=== PATIENT | male | born 1940 | race Caucasian/White ===

== ENCOUNTER → 2019-09-09 | Outpatient (REF) | payer OTHER | LOC: M LAB REF 13:44 | PROVIDERS: ATTEND Dermatology | DX: C44.222 Squamous cell carcinoma of skin of right ear and external auricular canal (principal) ==

== ENCOUNTER → 2019-10-12 | Outpatient (REF) | payer OTHER | LOC: M LAB REF 09:22 | PROVIDERS: ATTEND Dermatology | DX: C44.222 Squamous cell carcinoma of skin of right ear and external auricular canal (principal) ==

== ENCOUNTER → 2020-05-01 | Outpatient (CLI) | payer OTHER | LOC: M PAIN 12:25 | PROVIDERS: ATTEND Nurse Practitioner Family | DX: M96.1 Postlaminectomy syndrome, not elsewhere classified (principal); Z79.891 Long term (current) use of opiate analgesic ==

== ENCOUNTER → 2020-07-31 | Outpatient (CLI) | payer OTHER ==
--- NOTE | 2020-08-09 04:18 | ECWPNPC ---
PATIENT NAME: PEDRO LAROSE : 1940 GENDER: MALE VISIT DATE: 07/31/2020 DISCHARGE DATE: 07/31/20 1353 VISIT LOCKED DATE TIME: PHYSICIAN: FARHAN YO RESOURCE: FARHAN YO REASON FOR APPOINTMENT 1. MED MANAGEMENT / UTOX HISTORY OF PRESENT ILLNESS PAIN CENTER INTAKE QUESTIONS: DO YOU HAVE A HISTORY OF MRSA? :NO DO YOU TAKE A BLOOD THINNERS? :NO DO YOU HAVE ANY BLEEDING DISORDERS? :NO ANY NEW NUMBNESS OR WEAKNESS IN YOUR LEGS OR ARMS? :NO ANY PACEMAKER,DEFIBRILLATOR, OR DORSAL COLUMN STIMULATOR? :NO DO YOU HAVE ANY RASHES OR OPEN SORES? :NO ARE YOU ALLERGIC TO IV DYE? :NO ARE YOU DIABETIC? :NO ANY NEW PROBLEMS WITH YOUR MEDICATIONS? :NO HAVE YOU RECEIVED A VACCINE IN THE PAST 30 DAYS? :NO DO YOU PLAN TO RECEIVE A VACCINE IN THE NEXT 21 DAYS? :NO DO YOU NEED ANY PRESCRIPTION? :NO DO YOU TAKE ANY IMMUNOSUPPRESSIVE MEDICATIONS? :NO IS THERE A CHANCE YOU COULD BE ? :NO ARE YOU BREAST FEEDING? 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 THIS IS INITIAL FOLLOW-UP AFTER FIRST VISIT 3 MONTHS AGO. CONTINUES TO FIND HYDROCODONE 7.5/325 EVERY 6 HOURS NEEDED FOR PAIN HELPFUL AT REDUCING HIS PAIN WITHOUT SIDE EFFECTS. HE IS NOT INTERESTED IN INTERVENTIONAL THERAPIES. BRINGS IN HIS MEDICATION WHICH IS APPROPRIATE FOR WHAT WAS DISPENSED. -. FALL RISK SCREENING: SCREENING :NO FALLS REPORTED IN THE LAST YEAR PAIN SCREENING: PATIENT HAS A COMPLAINT OF ACUTE OR CHRONIC PAIN :YES LOCATION OF PAIN:RIGHT SHOULDER, LEFT SHOULDER, LOW BACK INTENSITY OF PAIN (SCALE OF 1 TO 10):6 WHAT DOES YOUR PAIN FEEL LIKE:CONTINOUS, TENDER, ACHING NURSING NOTE: -UPDATED NARCOTIC AGREEMENT. CURRENT MEDICATIONS TAKING FLOMAX 0.4 MG CAPSULE 1 CAPSULE 30 MINUTES AFTER THE SAME MEAL EACH DAY ORALLY ONCE A DAY TAKING HYDROCHLOROTHIAZIDE 25 MG TABLET 1 TABLET ORALLY ONCE A DAY TAKING PREVACID 15 MG CAPSULE DELAYED RELEASE 1 CAPSULE BEFORE A MEAL ORALLY BID TAKING FLUOXETINE HCL 20 MG CAPSULE 1 CAPSULE IN THE MORNING ORALLY ONCE A DAY TAKING LISINOPRIL 40 MG TABLET 1 TABLET ORALLY ONCE A DAY TAKING HYDROCODONE-ACETAMINOPHEN 7.5-325 MG TABLET 1 TABLET NEEDED ORALLY EVERY 6 HRS MDD4 NOT-TAKING HYDROCODONE-ACETAMINOPHEN 5-500 MG TABLET 2 TABLET NEEDED ORALLY EVERY 6 HRS NOT-TAKING METAXALONE 800 MG TABLET 1 TABLET ORALLY THREE TIMES A DAY PRN NOT-TAKING ETODOLAC 400 MG TABLET 1 TABLET ORALLY TWICE A DAY NOT-TAKING VASOTEC 10 MG TABLET 1 TABLET ORALLY TWICE A DAY NOT-TAKING SKELAXIN 800 MG TABLET 1 TABLET ORALLY THREE TIMES A DAY NOT-TAKING DOXYCYCLINE HYCLATE 100 MG CAPSULE 1 CAPSULE ORALLY TWICE A DAY NOT-TAKING VICODIN 5-500 MG TABLET 1 TABLET NEEDED ORALLY BID NOT-TAKING HYDROCODONE-ACETAMINOPHEN 10-325 MG TABLET 1 TABLET NEEDED ORALLY EVERY 6 HRS NOT-TAKING DOXYCYCLINE HYCLATE 100 MG CAPSULE 1 CAPSULE ORALLY BID MEDICATION LIST REVIEWED AND RECONCILED WITH THE PATIENT PAST MEDICAL HISTORY ABDOMINAL ANEURYSM CALCULUS OF KIDNEY DPERESSIVE DISORDER LUMBAGO REFLUX ESOPHAGITIS RENAL COLIC HTN ALLERGIES N.K.D.A. SURGICAL HISTORY APPENDECTOMY 1970 BACK 1983 THORAXIC 1987 RADIATION: SEED IMPLANTS CYSTOSCOPY 2019 FAMILY HISTORY FATHER: 45 YRS, CEREBRAL ANEURYSM MOTHER: 33 YRS, LUNG CANCER 3 SISTER(S) - HEALTHY. 2 SON(S) , 1 DAUGHTER(S) . 1 SISTER IS FROM CANCER. OLDEST SON HEALTH ISSUES. NO KNOWN FAMILY HISTORY OF UROLOGICAL DISEASES OR CANCERS.DENIES FAMILY HX OF MELANOMA AND PANCREATIC CANCER. SOCIAL HISTORY GENERAL: TOBACCO USE ARE YOU A:: FORMER SMOKER , HOW LONG HAS IT BEEN SINCE YOU LAST SMOKED?: 1-5 YEARS. LATEX QUESTIONNAIRE LATEX ALLERGY : HAVE YOU EVER DEVELOPED ANY TYPE OF REACTION AFTER HANDLING LATEX PRODUCTS SUCH RUBBER GLOVES, CONDOMS, DIAPHRAGMS, BALLOONS, SOCKS, OR UNDERWEAR?NO ALCOHOL SCREENING POINTS: 0, INTERPRETATION: NEGATIVE. RECREATIONAL DRUG USE DENIES. CAFFEINE 2-5/DAY. SEXUAL HX HAD SEX IN THE LAST 12 MONTHS (VAGINAL, ORAL, OR ANAL)?: NO, HAVE YOU EVER HAD AN STD?: YES, OTHER?: YES. LANGUAGE [place]. LEARNING BARRIERS / SPECIAL NEEDS VISION IMPAIRED?YES DIET: REGULAR. EXERCISE: NO REGULAR EXERCISE. MARITAL STATUS: . OTHERS AT HOME: SPOUSE, CHILD. HOSPITALIZATION/MAJOR DIAGNOSTIC PROCEDURE SURGICALLY RELATED REVIEW OF SYSTEMS CONSTITUTIONAL: ANY RECENT FEVER NO . CHILLS NO . WEIGHT CHANGE OF UNKNOWN REASONS NO . GASTROENTEROLOGY: NEW UNEXPLAINABLE CHANGES IN BOWEL CONTROL NO . CONSTIPATION NO . GENITOURINARY: ANY NEW CHANGE IN BLADDER CONTROL? NO . NEUROLOGY: NEW ONSET DIZZINESS OR NEUROLOGICAL CHANGES NOT MENTIONED NO . NEW NUMBNESS OR PAIN PATTERNS NOT MENTIONED AND PERTINENT TO TODAY'S VISIT NO . CARDIOLOGY: NEW CHEST PRESSURE NO . NEW CHEST PAIN NO . RESPIRATORY: UNEXPLAINABLE COUGH NO . NEW SHORTNESS OF BREATH NO . VITAL SIGNS WT 217.6 LBS, HT 70 IN, BMI 31.22 INDEX, BP 132/68 MM HG, HR 91 /MIN, RR 18 /MIN, TEMP 98.4 F, OXYGEN SAT % 92%, NA INITIALS SC13:09. EXAMINATION GENERAL EXAMINATION: GENERALAWAKE,ALERT ,PLEASANT . PSYCHAFFECT NORMAL . LUNGS:LUNG BECKETT ARE CLEAR TO AUSCULTATION BILATERALLY. GOOD MOVEMENT OF AIR . HEART:S1, S2 IN A REGULAR RATE AND RHYTHM. NO SIGNIFICANT MURMURS, RUBS OR GALLOPS NOTED . 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 BRINGS IN MEDICATIONS WHICH IS APPROPRIATE FOR WHAT WAS DISPENSED. , [facility] NARCOTIC AGREEMENT WAS REVIEWED AND SIGNED TODAY BY THE PATIENT. SEE ATTACHED DOCUMENT FOR FULL DETAILS; SPECIFIC ISSUES WERE REVIEWED: 1) KEEP PAIN MEDS IN THEIR ORIGINAL BOTTLES AND ANY WEEKLY PLANNERS ARE TO BE BROUGHT TO THE PAIN CENTER AT EVERY VISIT. 2) THE PATIENT IS NOT TO INCREASE DOSING OR TIMING OF THEIR PAIN MEDICATION WITHOUT SPECIFIC DIRECTION OF THEIR PAIN CENTERPROVIDER (NOT ER OR OTHER PROVIDERS). 3) ALL PAIN MEDS ARE TO BE KEPT SECURED, IN A LOCKED BOX. 4) NO PAIN MEDS ARE TO BE SHARED WITH ANY OTHER PERSON FOR ANY REASON. 5) NO PAIN MEDS MAY BE TAKEN FROM ANY FRIENDS OR RELATIVES FOR ANY REASON 6) NO MEDS OR SUBSTANCES WHICH ARE NOT LEGAL ARE TO BE USED- NO MARIJUANA, NO COCAINE, AMPHETAMINES, HEROIN, OR OTHERS ARE EVER TO BE USED. 7)URINE TESTING IS DONE TO ACCOUNT FOR MEDS AND SUBSTANCES BEING TAKEN AND WILL BE DONE RANDOMLY. URINE TOXICOLOGY TODAY. PROCEDURE CODES FA211 ESTABILISHED PATIENT [facility] CHARGE DISPOSITION & COMMUNICATION FOLLOW UP 3 MONTHS (REASON: MEDICATION MANAGEMENT/REVIEW TOXICOLOGY) ELECTRONICALLY SIGNED BY MASOOD STEVENSON ON 08/08/2020 AT 04:00 PM EST DISCLAIMER : THIS IS A VISIT SUMMARY EXTRACTED FROM THE [employer] CHART. IT IS NOT A COPY OF THE [employer] PROGRESS NOTE. YESENIA
== END ==
LOC: M PAIN 13:30
PROVIDERS: ATTEND Nurse Practitioner Family
DX: M47.816 Spondylosis without myelopathy or radiculopathy, lumbar region (principal); G89.29 Other chronic pain; K21.9 Gastro-esophageal reflux disease without esophagitis; Z86.59 Personal history of other mental and behavioral disorders; Z87.891 Personal history of nicotine dependence; Z79.899 Other long term (current) drug therapy

== ENCOUNTER → 2020-10-29 | Outpatient (CLI) | payer OTHER ==
--- NOTE | 2020-11-02 05:12 | ECWPNPC ---
PATIENT NAME: PEDRO LAROSE : 1940 GENDER: MALE VISIT DATE: 10/29/2020 DISCHARGE DATE: 10/29/20 1332 VISIT LOCKED DATE TIME: PHYSICIAN: FARHAN YO RESOURCE: FARHAN YO REASON FOR APPOINTMENT 1. 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 CONTINUES TO FIND HYDROCODONE 7.5/325 EVERY 6 HOURS NEEDED FOR PAIN HELPFUL AT REDUCING HIS PAIN WITHOUT SIDE EFFECTS. HE IS NOT INTERESTED IN INTERVENTIONAL THERAPIES. RECENT URINE TOXICOLOGY IS REVIEWED AND WITHIN NORMAL LIMITS. PATIENT DENIES SIDE EFFECTS WITH MEDICATIONS. REPORTING NORMAL BOWEL AND BLADDER FUNCTION. - -. FALL RISK SCREENING: SCREENING : NO FALLS REPORTED IN THE LAST YEAR. PAIN SCREENING: PATIENT HAS A COMPLAINT OF ACUTE OR CHRONIC PAIN :YES LOCATION OF PAIN:BOTH SHOULDERS, LOW BACK PAIN GOES DOWN BOTH LEG BUT MOSTLY THE LEFT INTENSITY OF PAIN (SCALE OF 1 TO 10):7 WHAT DOES YOUR PAIN FEEL LIKE:CONTINOUS DURATION:CONTINOUS, CONSTANT, ALL DAY PAIN IS INCREASED BY:ACTIVITIES, PROLONGED STANDING PAIN IS DECREASED BY:USE OF PAIN MEDICATIONS NURSING NOTE: -. PAIN CENTER INTAKE QUESTIONS: DO YOU HAVE A HISTORY OF MRSA? :NO DO YOU TAKE A BLOOD THINNERS? :NO DO YOU HAVE ANY BLEEDING DISORDERS? :NO ANY NEW NUMBNESS OR WEAKNESS IN YOUR LEGS OR ARMS? :NO ANY PACEMAKER,DEFIBRILLATOR, OR DORSAL COLUMN STIMULATOR? :NO DO YOU HAVE ANY RASHES OR OPEN SORES? :NO ARE YOU ALLERGIC TO IV DYE? :NO ARE YOU DIABETIC? :NO ANY NEW PROBLEMS WITH YOUR MEDICATIONS? :NO HAVE YOU RECEIVED A VACCINE IN THE PAST 30 DAYS? :YES 1ST COVID 10/13/2020 DO YOU PLAN TO RECEIVE A VACCINE IN THE NEXT 21 DAYS? :YES IF SO WHAT VACCINE AND WHEN? 2ND COVID 11/14/2020 DO YOU NEED ANY PRESCRIPTION? :NO DO YOU TAKE ANY IMMUNOSUPPRESSIVE MEDICATIONS? :NO IS THERE A CHANCE YOU COULD BE ? :NO ARE YOU BREAST FEEDING? :NO CURRENT MEDICATIONS TAKING VASOTEC 10 MG TABLET 1 TABLET ORALLY TWICE A DAY TAKING HYDROCODONE-ACETAMINOPHEN 7.5-325 MG TABLET 1 TABLET NEEDED ORALLY EVERY 6 HRS TAKING TIZANIDINE HCL 2 MG TABLET 1 TABLET NEEDED ORALLY THREE TIMES A DAY NOT-TAKING FLOMAX 0.4 MG CAPSULE 1 CAPSULE 30 MINUTES AFTER THE SAME MEAL EACH DAY ORALLY ONCE A DAY NOT-TAKING HYDROCHLOROTHIAZIDE 25 MG TABLET 1 TABLET ORALLY ONCE A DAY NOT-TAKING PREVACID 15 MG CAPSULE DELAYED RELEASE 1 CAPSULE BEFORE A MEAL ORALLY BID NOT-TAKING FLUOXETINE HCL 20 MG CAPSULE 1 CAPSULE IN THE MORNING ORALLY ONCE A DAY NOT-TAKING LISINOPRIL 40 MG TABLET 1 TABLET ORALLY ONCE A DAY DISCONTINUED HYDROCODONE-ACETAMINOPHEN 5-500 MG TABLET 2 TABLET NEEDED ORALLY EVERY 6 HRS DISCONTINUED METAXALONE 800 MG TABLET 1 TABLET ORALLY TWICE TIMES A DAY PRN DISCONTINUED ETODOLAC 400 MG TABLET 1 TABLET ORALLY TWICE A DAY DISCONTINUED SKELAXIN 800 MG TABLET 1 TABLET ORALLY THREE TIMES A DAY DISCONTINUED DOXYCYCLINE HYCLATE 100 MG CAPSULE 1 CAPSULE ORALLY TWICE A DAY DISCONTINUED VICODIN 5-500 MG TABLET 1 TABLET NEEDED ORALLY BID DISCONTINUED DOXYCYCLINE HYCLATE 100 MG CAPSULE 1 CAPSULE ORALLY BID DISCONTINUED HYDROCODONE-ACETAMINOPHEN 7.5-325 MG TABLET 1 TABLET NEEDED ORALLY EVERY 6 HRS MDD4 MEDICATION LIST REVIEWED AND RECONCILED WITH THE PATIENT PAST MEDICAL HISTORY ABDOMINAL ANEURYSM CALCULUS OF KIDNEY DPERESSIVE DISORDER LUMBAGO REFLUX ESOPHAGITIS RENAL COLIC HTN BACK PAIN ALLERGIES N.K.D.A. SOCIAL HISTORY GENERAL: TOBACCO USE ARE YOU A:FORMER SMOKER STOP 2008 LATEX QUESTIONNAIRE LATEX ALLERGY : HAVE YOU EVER DEVELOPED ANY TYPE OF REACTION AFTER HANDLING LATEX PRODUCTS SUCH RUBBER GLOVES, CONDOMS, DIAPHRAGMS, BALLOONS, SOCKS, OR UNDERWEAR?NO LATEX ALLERGY : HAVE YOU EVER DEVELOPED ANY TYPE OF REACTION DURING OR AFTER DENTAL APPOINTMENT, VAGINAL/RECTAL EXAMINATION, SURGICAL PROCEDURE, OR ANY OTHER EXPOSURE?NO LATEX RISK : HAVE YOU EVER HAD ANY DIFFICULTY BREATHING OR HIVES AFTER EATING OR HANDLING ANY FRUITS, OR VEGETABLES; SUCH KIWI, BANANAS, STONE FRUITS, OR CHESTNUTSNO LATEX RISK : DO YOU HAVE A PREVIOUS PERSONAL HISTORY OF MORE THAN NINE SURGERIES, SPINA BIFIDA, OR REPEATED CATHERIZATIONS? NO LATEX RISK : ARE YOU FREQUENTLY EXPOSED TO LATEX PRODUCTS IN YOUR OCCUPATION?NO DATE ASKED : 10/29/2020 ALCOHOL USE: NO. ALCOHOL SCREENING POINTS: 0, INTERPRETATION: NEGATIVE. RECREATIONAL DRUG USE DENIES. CAFFEINE 2-5/DAY. SEXUAL HX HAD SEX IN THE LAST 12 MONTHS (VAGINAL, ORAL, OR ANAL)?: NO, HAVE YOU EVER HAD AN STD?: YES, OTHER?: YES. LANGUAGE TAJIK. LEARNING BARRIERS / SPECIAL NEEDS VISION IMPAIRED?YES :CORRECTIVE LENSES READINESS TO LEARN?NO LEARNING PREFERENCES?NO EMOTIONAL BARRIERS?NO SPECIAL DEVICES?NO DIET: REGULAR. EXERCISE: NO REGULAR EXERCISE. MARITAL STATUS: . OTHERS AT HOME: SPOUSE, CHILD. REVIEW OF SYSTEMS CONSTITUTIONAL: ANY RECENT FEVER NO . CHILLS NO . WEIGHT CHANGE OF UNKNOWN REASONS NO . GASTROENTEROLOGY: NEW UNEXPLAINABLE CHANGES IN BOWEL CONTROL NO . CONSTIPATION NO . GENITOURINARY: ANY NEW CHANGE IN BLADDER CONTROL? NO . NEUROLOGY: NEW ONSET DIZZINESS OR NEUROLOGICAL CHANGES NOT MENTIONED NO . NEW NUMBNESS OR PAIN PATTERNS NOT MENTIONED AND PERTINENT TO TODAY'S VISIT NO . CARDIOLOGY: NEW CHEST PRESSURE NO . PATIENT DENIES NO . RESPIRATORY: UNEXPLAINABLE COUGH NO . NEW SHORTNESS OF BREATH NO . VITAL SIGNS WT 220 LBS, HT 70 IN, BMI 31.56 INDEX, BP 125/75 MM HG, HR 86 /MIN, RR 18 /MIN, TEMP 97.2 F, OXYGEN SAT % 93%, SAFE IN ENV? (Y/N) YEST.CHILO CUELLAR. EXAMINATION GENERAL EXAMINATION: GENERALAWAKE,ALERT ,PLEASANT . PSYCHAFFECT NORMAL . LUNGS:LUNG BECKETT ARE CLEAR TO AUSCULTATION BILATERALLY. GOOD MOVEMENT OF AIR . HEART:S1, S2 IN A REGULAR RATE AND RHYTHM. NO SIGNIFICANT MURMURS, RUBS OR GALLOPS NOTED . 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 RECENT URINE TOXICOLOGY REVIEWED. NO UNAUTHORIZED MEDICATIONS. NO ILLICIT SUBSTANCES AND PRESCRIBED MEDICATIONS WERE PRESENT. BRING MEDICATION TO NEXT APPOINTMENT , RISKS OF NARCOTIC/OPIOD MEDICATIONS INCLUDES BUT IS NOT LIMITED TO RISK OF DEPENDANCE/DEVELOPMENT OF ADDICTION, MOOD DISTURBANCE AND DEPRESSION, OSTEOPOROSIS, HORMONAL AND LABIDAL CHANGES, RESPIRATORY DEPRESSION AND . PATIENT IS ADVISED NOT TO DRIVE OR DRINK ALCOHOL WHILE ON THESE MEDICATIONS. PROCEDURE CODES FA211 ESTABILISHED PATIENT [facility] CHARGE DISPOSITION & COMMUNICATION FOLLOW UP 3 MONTHS (REASON: MED MGMNT-UTOX) ELECTRONICALLY SIGNED BY MASOOD STEVENSON ON 11/01/2020 AT 09:41 AM EDT DISCLAIMER : THIS IS A VISIT SUMMARY EXTRACTED FROM THE [employer] CHART. IT IS NOT A COPY OF THE [employer] PROGRESS NOTE. YESENIA
== END ==
LOC: M PAIN 13:30
PROVIDERS: ATTEND Nurse Practitioner Family
DX: M47.816 Spondylosis without myelopathy or radiculopathy, lumbar region (principal); F32.9 Major depressive disorder, single episode, unspecified; K21.00 Gastro-esophageal reflux disease with esophagitis, without bleeding; I10 Essential (primary) hypertension; Z87.891 Personal history of nicotine dependence; Z79.891 Long term (current) use of opiate analgesic; Z79.899 Other long term (current) drug therapy

== ENCOUNTER → 2021-01-02 | Outpatient (REF) | payer OTHER ==
[~2021-01-02] MED LIST: ALBU8.5H; ALEN70TA82; CIPR500T39; FINA5TAB2; FLUO20CA22; HYDR-3716; LISI20TA35; LOVA40TA; MELO7.5T35; METF-838; OXYB5TAB10; PANT40TA29; ROPI0.2534; SPIR12.9; TAMS1CAP17; TIZA1TAB12
[2021-01-02 13:37] LABS: APPEARANCE, URINE CLEAR (CLEAR); BACTERIA, URINE AUTO 1+ (NEGATIVE); BILIRUBIN, URINE AUTO NEGATIVE (NEGATIVE); BLOOD, URINE BLOOD NEGATIVE (NEGATIVE); COLOR, URINE YELLOW (YELLOW); GLUCOSE, URINE (UA) AUTO NEGATIVE (NEGATIVE); KETONE, URINE AUTO NEGATIVE (NEGATIVE); LEUKOCYTE ESTERASE, URINE AUTO TRACE (NEGATIVE); MUCUS, URINE SMALL (NEGATIVE); NITRITE, URINE AUTO NEGATIVE (NEGATIVE); PROTEIN, URINE AUTO NEGATIVE (NEGATIVE); RBC, URINE AUTO 1 /HPF (0-3); SPECIFIC GRAVITY URINE AUTO 1.014 (1.002-1.035); SQUAMOUS EPITHELIAL CELL UR AU 0 /HPF (0-6); UROBILINOGEN, URINE AUTO 0.2 mg/dL (0.0-2.0); WBC, URINE AUTO 12 /HPF (0-3)
== END ==
LOC: M SMT 12:50
PROVIDERS: ATTEND Nurse Practitioner Women's Health
DX: N40.0 Benign prostatic hyperplasia without lower urinary tract symptoms (principal)
CPT/HCPCS: 81001; 87088; 87186; G0463

== ENCOUNTER 2021-01-10 09:56 | Emergency (ER) | payer OTHER ==
[~2021-01-10] VITALS: Ht 177.8 cm; Wt 93.2 kg
[2021-01-10] MEDS ORDERED: SPIR12.9 (11:57)
[2021-01-10] MEDS ORDERED: MELO7.5T35 (11:57)
[2021-01-10] MEDS ORDERED: OXYB5TAB10 (11:57)
[2021-01-10] MEDS ORDERED: TIZA1TAB12 (11:57)
[2021-01-10] MEDS ORDERED: PANT40TA29 (11:57)
[2021-01-10] MEDS ORDERED: ALBU8.5H (11:57)
[2021-01-10] MEDS ORDERED: TAMS1CAP17 (11:57)
[2021-01-10] MEDS ORDERED: ALEN70TA82 (11:57)
[2021-01-10] MEDS ORDERED: METF-838 (11:57)
[2021-01-10] MEDS ORDERED: FINA5TAB2 (11:57)
[2021-01-10] MEDS ORDERED: ROPI0.2534 (11:57)
[2021-01-10] MEDS ORDERED: LOVA40TA (11:57)
[2021-01-10] MEDS ORDERED: HYDR-3716 (11:57)
[2021-01-10] MEDS ORDERED: CIPR500T39 (11:57)
[2021-01-10] MEDS ORDERED: FLUO20CA22 (11:57)
[2021-01-10] MEDS ORDERED: LISI20TA35 (11:57)
[2021-01-10 13:56] VITALS: BP 118/70
== END 2021-01-10 14:01 | disposition home or self-care (01) ==
LOC: M ED 09:56
DX: N39.0 Urinary tract infection, site not specified (principal); R39.12 Poor urinary stream; T44.3X5A Adverse effect of other parasympatholytics [anticholinergics and antimuscarinics] and spasmolytics, initial encounter; Z79.2 Long term (current) use of antibiotics; J44.9 Chronic obstructive pulmonary disease, unspecified; I10 Essential (primary) hypertension; E11.9 Type 2 diabetes mellitus without complications; K21.9 Gastro-esophageal reflux disease without esophagitis; M54.9 Dorsalgia, unspecified; G89.29 Other chronic pain; Z79.899 Other long term (current) drug therapy; Z85.46 Personal history of malignant neoplasm of prostate; Z87.440 Personal history of urinary (tract) infections; Z87.442 Personal history of urinary calculi; Z92.3 Personal history of irradiation; Z86.79 Personal history of other diseases of the circulatory system; Z90.89 Acquired absence of other organs; Z98.890 Other specified postprocedural states; Z87.891 Personal history of nicotine dependence; Z82.49 Family history of ischemic heart disease and other diseases of the circulatory system; Z80.1 Family history of malignant neoplasm of trachea, bronchus and lung

== ENCOUNTER → 2021-02-01 | Outpatient (CLI) | payer OTHER ==
--- NOTE | 2021-02-05 04:56 | ECWPNPC ---
PATIENT NAME: PEDRO LAROSE : 1940 GENDER: MALE VISIT DATE: 02/01/2021 DISCHARGE DATE: 02/01/21 1327 VISIT LOCKED DATE TIME: PHYSICIAN: FARHAN YO RESOURCE: FARHAN YO REASON FOR APPOINTMENT 1. LOW BACK/MED MGMNT/UTOX HISTORY OF PRESENT ILLNESS GENERAL: HERE FOR FOLLOW-UP AND MEDICATION MANAGEMENT FOR CHRONIC LOW BACK PAIN. FINDS CURRENT CHRONIC PAIN MEDICATION HELPFUL AT REDUCING PAIN AND KEEPING HIM FUNCTIONAL. DENIES ADVERSE SIDE EFFECTS WITH MEDICATION. BRINGS IN HIS MEDICINE WHICH IS APPROPRIATE FOR WHAT WAS DISPENSED. -. FALL RISK SCREENING: SCREENING ONE FALL THIS YEAR NO MAJOR INJURIES BUT DID GO TO THE ER. PAIN SCREENING: PATIENT HAS A COMPLAINT OF ACUTE OR CHRONIC PAIN :YES LOCATION OF PAIN:LOW BACK INTENSITY OF PAIN (SCALE OF 1 TO 10):6 WHAT DOES YOUR PAIN FEEL LIKE:ACHING, CONTINOUS DURATION:CONTINOUS, CONSTANT, ONLY WITH SPECIFIC ACTIVITIES PAIN IS INCREASED BY:ACTIVITIES PAIN IS DECREASED BY:USE OF PAIN MEDICATIONS NURSING NOTE: -. PAIN CENTER INTAKE QUESTIONS: DO YOU HAVE A HISTORY OF MRSA? :NO DO YOU TAKE A BLOOD THINNERS? :NO ASPIR-LOW 81 MG DO YOU HAVE ANY BLEEDING DISORDERS? :NO ANY NEW NUMBNESS OR WEAKNESS IN YOUR LEGS OR ARMS? :NO ANY PACEMAKER,DEFIBRILLATOR, OR DORSAL COLUMN STIMULATOR? :NO DO YOU HAVE ANY RASHES OR OPEN SORES? :NO ARE YOU ALLERGIC TO IV DYE? :NO ARE YOU DIABETIC? :NO BORDER LINE ANY NEW PROBLEMS WITH YOUR MEDICATIONS? :NO HAVE YOU RECEIVED A VACCINE IN THE PAST 30 DAYS? :YES 1ST COVID 10/13/2020 DO YOU PLAN TO RECEIVE A VACCINE IN THE NEXT 21 DAYS? :YES IF SO WHAT VACCINE AND WHEN? 2ND COVID 11/14/2020 DO YOU NEED ANY PRESCRIPTION? :NO DO YOU TAKE ANY IMMUNOSUPPRESSIVE MEDICATIONS? :NO IS THERE A CHANCE YOU COULD BE ? :NO ARE YOU BREAST FEEDING? :NO CURRENT MEDICATIONS TAKING VASOTEC 10 MG TABLET 1 TABLET ORALLY TWICE A DAY TAKING TIZANIDINE HCL 2 MG TABLET 1 TABLET NEEDED ORALLY THREE TIMES A DAY TAKING LOVASTATIN 40 MG TABLET 1 TABLET WITH THE EVENING MEAL ORALLY ONCE A DAY TAKING FISH OIL 1000 MG CAPSULE 1 CAPSULE ORALLY ONCE A DAY TAKING ASPIR-LOW 81 MG TABLET DELAYED RELEASE 1 TABLET ORALLY ONCE A DAY TAKING METFORMIN HCL ER 500 MG TABLET EXTENDED RELEASE 24 HOUR 1 TABLET WITH EVENING MEAL ORALLY ONCE A DAY TAKING PANTOPRAZOLE SODIUM 40 MG TABLET DELAYED RELEASE 1 TABLET ORALLY ONCE A DAY TAKING ALENDRONATE SODIUM 70 MG TABLET 1 TABLET 30 MINUTES BEFORE THE FIRST FOOD, BEVERAGE OR MEDICINE OF THE DAY WITH PLAIN WATER ORALLY TAKING TAMSULOSIN HCL 0.4 MG CAPSULE 1 CAPSULE ORALLY ONCE A DAY TAKING FINASTERIDE 5 MG TABLET 1 TABLET ORALLY ONCE A DAY TAKING ROPINIROLE HCL 0.25 MG TABLET 1 TABLET 1 TO 3 HOURS BEFORE BEDTIME ORALLY ONCE A DAY TAKING MELOXICAM 7.5 MG TABLET 1 TABLET ORALLY ONCE A DAY TAKING FLUOXETINE HCL 20 MG CAPSULE 1 CAPSULE ORALLY ONCE A DAY TAKING TIZANIDINE HCL 2 MG TABLET 1 TABLET NEEDED ORALLY THREE TIMES A DAY TAKING VITAMIN B12 100 MCG TABLET DIRECTED ORALLY TAKING CLOTRIMAZOLE 1 % CREAM 1 APPLICATION EXTERNALLY TWICE A DAY TAKING LISINOPRIL 20 MG TABLET 1 TABLET ORALLY 12.5MG ONCE A DAY TAKING OXYBUTYNIN CHLORIDE 5 MG TABLET 1 TABLET ORALLY TWICE A DAY TAKING BACTRIM DS 800-160 MG TABLET 1 TABLET ORALLY DIRECTED-1 HOUR PRIOR TO CYSTOSCOPY TAKING CIPRO 500 MG TABLET 1 TABLET ORALLY EVERY 12 HRS TAKING HYDROCODONE-ACETAMINOPHEN 7.5-325 MG TABLET 1 TABLET NEEDED ORALLY EVERY 6 HRS MDD4 NOT-TAKING HYDROCODONE-ACETAMINOPHEN 7.5-325 MG TABLET 1 TABLET NEEDED ORALLY EVERY 6 HRS NOT-TAKING FLOMAX 0.4 MG CAPSULE 1 CAPSULE 30 MINUTES AFTER THE SAME MEAL EACH DAY ORALLY ONCE A DAY NOT-TAKING HYDROCHLOROTHIAZIDE 25 MG TABLET 1 TABLET ORALLY ONCE A DAY NOT-TAKING PREVACID 15 MG CAPSULE DELAYED RELEASE 1 CAPSULE BEFORE A MEAL ORALLY BID NOT-TAKING FLUOXETINE HCL 20 MG CAPSULE 1 CAPSULE IN THE MORNING ORALLY ONCE A DAY MEDICATION LIST REVIEWED AND RECONCILED WITH THE PATIENT PAST MEDICAL HISTORY ABDOMINAL ANEURYSM CALCULUS OF KIDNEY DPERESSIVE DISORDER LUMBAGO REFLUX ESOPHAGITIS RENAL COLIC HTN BACK PAIN ALLERGIES N.K.D.A. SURGICAL HISTORY APPENDECTOMY 1971 BACK 1984 THORAXIC 1987 RADIATION: SEED IMPLANTS CYSTOSCOPY 2019 SCAR TISSUE REMOVAL ON URETHRA 03/2020 FAMILY HISTORY FATHER: 45 YRS, CEREBRAL ANEURYSM MOTHER: 33 YRS, LUNG CANCER, COPD 3 SISTER(S) - HEALTHY. 2 SON(S) , 1 DAUGHTER(S) . 1 SISTER IS FROM CANCER. OLDEST SON HEALTH ISSUES. NO KNOWN FAMILY HISTORY OF UROLOGICAL DISEASES OR CANCERS.DENIES FAMILY HX OF MELANOMA AND PANCREATIC CANCER. SOCIAL HISTORY GENERAL: TOBACCO USE ARE YOU A:FORMER SMOKER STOP 2008 LATEX QUESTIONNAIRE LATEX ALLERGY : HAVE YOU EVER DEVELOPED ANY TYPE OF REACTION AFTER HANDLING LATEX PRODUCTS SUCH RUBBER GLOVES, CONDOMS, DIAPHRAGMS, BALLOONS, SOCKS, OR UNDERWEAR?NO LATEX ALLERGY : HAVE YOU EVER DEVELOPED ANY TYPE OF REACTION DURING OR AFTER DENTAL APPOINTMENT, VAGINAL/RECTAL EXAMINATION, SURGICAL PROCEDURE, OR ANY OTHER EXPOSURE?NO LATEX RISK : HAVE YOU EVER HAD ANY DIFFICULTY BREATHING OR HIVES AFTER EATING OR HANDLING ANY FRUITS, OR VEGETABLES; SUCH KIWI, BANANAS, STONE FRUITS, OR CHESTNUTSNO LATEX RISK : DO YOU HAVE A PREVIOUS PERSONAL HISTORY OF MORE THAN NINE SURGERIES, SPINA BIFIDA, OR REPEATED CATHERIZATIONS? NO LATEX RISK : ARE YOU FREQUENTLY EXPOSED TO LATEX PRODUCTS IN YOUR OCCUPATION?NO DATE ASKED : 02/01/2021 ALCOHOL USE: NO. ALCOHOL SCREENING POINTS: 0, INTERPRETATION: NEGATIVE. RECREATIONAL DRUG USE DENIES. CAFFEINE 2-5/DAY. SEXUAL HX HAD SEX IN THE LAST 12 MONTHS (VAGINAL, ORAL, OR ANAL)?: NO, HAVE YOU EVER HAD AN STD?: YES, OTHER?: YES. LANGUAGE SAO [place]. LEARNING BARRIERS / SPECIAL NEEDS CHANGE FROM LAST VISIT?NO BARRIERS TO LEARNING?NO HEARING IMPAIRED?NO NOT REALLY VISION IMPAIRED?YES :CORRECTIVE LENSES COGNITIVELY IMPAIRED?NO READINESS TO LEARN?NO LEARNING PREFERENCES?NO LEARNING CAPABILITIES PRESENT?YES EMOTIONAL BARRIERS?NO SPECIAL DEVICES?NO FREELANCE TRANSLATOR NEEDED?NO DIET: REGULAR. EXERCISE: NO REGULAR EXERCISE. MARITAL STATUS: . OTHERS AT HOME: SPOUSE, CHILD. HOSPITALIZATION/MAJOR DIAGNOSTIC PROCEDURE SURGICALLY RELATED ONE FALL NO MAJOR INJURES DID STAY OVER NIGHT REVIEW OF SYSTEMS CONSTITUTIONAL: ANY RECENT FEVER NO . CHILLS NO . WEIGHT CHANGE OF UNKNOWN REASONS NO . GASTROENTEROLOGY: NEW UNEXPLAINABLE CHANGES IN BOWEL CONTROL NO . CONSTIPATION NO . GENITOURINARY: ANY NEW CHANGE IN BLADDER CONTROL? NO . NEUROLOGY: NEW ONSET DIZZINESS OR NEUROLOGICAL CHANGES NOT MENTIONED NO . NEW NUMBNESS OR PAIN PATTERNS NOT MENTIONED AND PERTINENT TO TODAY'S VISIT NO . CARDIOLOGY: NEW CHEST PRESSURE NO . PATIENT DENIES NO . RESPIRATORY: UNEXPLAINABLE COUGH NO . NEW SHORTNESS OF BREATH NO . VITAL SIGNS WT 212 LBS, HT 70 IN, BMI 30.42 INDEX, BP 122/82 MM HG, HR 75 /MIN, RR 18 /MIN, TEMP 97.6 F, OXYGEN SAT % 94%, NA INITIALS SC 13:08. EXAMINATION GENERAL EXAMINATION: GENERALAWAKE,ALERT ,PLEASANT . PSYCHAFFECT NORMAL . LUNGS:LUNG BECKETT ARE CLEAR TO AUSCULTATION BILATERALLY. GOOD MOVEMENT OF AIR . HEART:S1, S2 IN A REGULAR RATE AND RHYTHM. NO SIGNIFICANT MURMURS, RUBS OR GALLOPS NOTED . 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 BRINGS IN MEDICATIONS WHICH IS APPROPRIATE FOR WHAT WAS DISPENSED. RECENT URINE TOXICOLOGY REVIEWED. NO UNAUTHORIZED MEDICATIONS. NO ILLICIT SUBSTANCES AND PRESCRIBED MEDICATIONS WERE PRESENT. , RISKS OF NARCOTIC/OPIOD MEDICATIONS INCLUDES BUT IS NOT LIMITED TO RISK OF DEPENDANCE/DEVELOPMENT OF ADDICTION, MOOD DISTURBANCE AND DEPRESSION, OSTEOPOROSIS, HORMONAL AND LABIDAL CHANGES, RESPIRATORY DEPRESSION AND . PATIENT IS ADVISED NOT TO DRIVE OR DRINK ALCOHOL WHILE ON THESE MEDICATIONS. PROCEDURE CODES FA211 ESTABILISHED PATIENT [facility] CHARGE DISPOSITION & COMMUNICATION FOLLOW UP 3 MONTHS (REASON: MED MGMNT/REVIEW UTOX) ELECTRONICALLY SIGNED BY MASOOD STEVENSON ON 02/04/2021 AT 12:52 PM EDT DISCLAIMER : THIS IS A VISIT SUMMARY EXTRACTED FROM THE [employer] CHART. IT IS NOT A COPY OF THE [employer] PROGRESS NOTE. MTDD
== END ==
LOC: M PAIN 13:30
PROVIDERS: ATTEND Nurse Practitioner Family
DX: M47.816 Spondylosis without myelopathy or radiculopathy, lumbar region (principal); F32.9 Major depressive disorder, single episode, unspecified; M54.5 Low back pain; K21.00 Gastro-esophageal reflux disease with esophagitis, without bleeding; I10 Essential (primary) hypertension; Z87.442 Personal history of urinary calculi; Z87.891 Personal history of nicotine dependence; Z79.891 Long term (current) use of opiate analgesic; Z79.82 Long term (current) use of aspirin; Z79.84 Long term (current) use of oral hypoglycemic drugs; Z79.899 Other long term (current) drug therapy; Z79.1 Long term (current) use of non-steroidal anti-inflammatories (NSAID)

== ENCOUNTER 2021-03-14 06:53 | Day surgery (SDC) | payer OTHER ==
[~2021-03-14] VITALS: Ht 177.8 cm; Wt 93.3 kg
[~2021-03-14 06:53] MED LIST changes: +CIPROFLOXACIN 400 MG in IV 1 EA IV ONE; +D31000TA2 PO; +ECOT81TA5 PO; -FINA5TAB2; +FINA5TAB2 PO; -FLUO20CA22; +FLUO20CA22 PO; +FOSA70TA PO; -HYDR-3716; +HYDR-3716 PO; +INCR1INH INH; +LIDOCAINE 1% MDV 20ML VIAL SQ PRN; +LISI20TA33 PO; -LOVA40TA; +LOVA40TA PO; +LR 1,000 ML IV ONE; -MELO7.5T35; +MELO7.5T35 PO; -METF-838; +METF-838 PO; -PANT40TA29; +PANT40TA29 PO; -ROPI0.2534; +ROPI0.2534 PO; -TAMS1CAP17; +TAMS1CAP17 PO
[2021-03-14] MEDS ORDERED: MIDAZOLAM INJ 2MG/2ML VIAL (J2250 PER 1MG) As Ordered ONE (08:00)
[2021-03-14] MEDS ORDERED: propofoL 200 MG/20 ML VIAL As Ordered ONE (08:00)
[2021-03-14] MEDS ORDERED: ONDANSETRON 4MG/2ML VIAL As Ordered ONE (08:00)
[2021-03-14] MEDS ORDERED: dexameTHASONE 4 MG/ML 1ML VIAL (J1100 PER 1MG) As Ordered ONE (08:00)
[2021-03-14] MEDS ORDERED: LIDOCAINE 2% 100MG/5ML SDV (FOR ANES.) As Ordered ONE (08:00)
[2021-03-14] MEDS ORDERED: fentaNYL 100 MCG/2 ML INJECTION (J3010) As Ordered ONE (08:00)
[2021-03-14] MEDS ORDERED: KETOROLAC 60MG 2ML VIAL As Ordered ONE (08:00)
--- NOTE | 2021-03-14 08:40 | ROOPDOC ---
[facility] Report Of Operation Report of Operation DATE OF PROCEDURE: 03/14/21 PREPROCEDURE DIAGNOSES: [urethral stricture]. POSTPROCEDURE DIAGNOSES: [same]. PROCEDURE PERFORMED: [dviu with complex catheter placement]. SURGEON: [Brigitte Gonzalez], AIR BRAKE TESTER: [none], MD ANESTHESIA: [general lma]. ESTIMATED BLOOD LOSS: Approximately [1] mL. COMPLICATIONS: [none]. REMARKS: [80yo wm. Urethral stricture at level of prostatic urethra. S/p seeds and radiation in past for prostate cancer. Incontinence. Surgery arranged to open urethra. No guarantees given. Informed consent obtained. Risks discussed including infection, pain, bleeding, scarring, worsening of incontinence, retention, need for more surgery, injury to gu tract, recurrence of stricture and others.]. FINDINGS: [bindu indistinct prostate] SPECIMENS REMOVED: [urine cx] PROCEDURE NOTE: . DESCRIPTION OF PROCEDURE: [Met with pt in preop area and again discussed surgery. Informed consent obtained. Risks discussed including worsening of incontinence and others. Pt brought to OR room. Surgery done under iv Cipro. General lma anesthesia secured. Time out performed. Dorsal litho position. Well padded. Prep'd and draped in sterile fashion. Urethrotome sheath advanced into urethra with its obturator. Urethrotome then assembled. Prostatic urethra with much scarring. Tissue pale. True lumen at 12 o'clock. Wire advanced into bladder. Stricture cut at 12 o'clock. Also cut at 3 and 9. Couldn't pass scope initially but after cutting, no problem. Bladder inspected. No stone or tumor or acute cystitis. Urine collected for cx. Once satisfied with opening stricture, 20fr native placed over wire. Cut until bleeding noted. Bladder irrigated at end. Bleeding not as issue. Pt left room in satisfactory condition. Home with Bactrim, Pyridium and oxybutynin.]. ANAT GONZALEZ MD Mar 14, 2021 08:40
[2021-03-14] MEDS ORDERED: OXYB5TAB10 PO (08:44)
[2021-03-14] MEDS ORDERED: BACTDSTA PO (08:44)
[2021-03-14] MEDS ORDERED: PYRI1TAB5 PO (08:44)
[2021-03-14] MEDS ORDERED: ePHEDrine SULFATE 25 MG/5 ML(5MG/ML) SYRINGE As Ordered ONE (08:51)
[2021-03-14] MEDS ORDERED: oxyCODONE 5MG TAB PO PRN (09:25)
[2021-03-14] MEDS ORDERED: fentaNYL 100 MCG/2 ML INJECTION (J3010) IV PRN (09:25)
[2021-03-14] MEDS ORDERED: LR 1,000 ML IV SCH ×2 (09:25→09:35)
[2021-03-14] MEDS ORDERED: MEPERIDINE INJ 25 MG/ML VIAL (J2175) IV PRN (09:25)
[2021-03-14] MEDS ORDERED: ONDANSETRON 4MG/2ML VIAL IV PRN (09:25)
[2021-03-14 10:35] VITALS: BP 134/78
== END 2021-03-14 10:50 | disposition home or self-care (01) ==
LOC: M SDC 06:53
PROVIDERS: ATTEND Urology
DX: N35.911 Unspecified urethral stricture, male, meatal (principal); R32 Unspecified urinary incontinence; R35.0 Frequency of micturition; J44.9 Chronic obstructive pulmonary disease, unspecified; E11.9 Type 2 diabetes mellitus without complications; K21.9 Gastro-esophageal reflux disease without esophagitis; I10 Essential (primary) hypertension; M19.90 Unspecified osteoarthritis, unspecified site; G89.4 Chronic pain syndrome; F32.9 Major depressive disorder, single episode, unspecified; I71.2 Thoracic aortic aneurysm, without rupture; Z79.899 Other long term (current) drug therapy; Z79.82 Long term (current) use of aspirin; Z79.84 Long term (current) use of oral hypoglycemic drugs
CPT/HCPCS: 52276; 87088; C1769; J0744; J1100; J1885; J2405; J3010

== ENCOUNTER → 2021-07-25 | Outpatient (CLI) | payer OTHER ==
[~2021-07-25] MED LIST changes: +BACTDSTA PO; -CIPROFLOXACIN 400 MG in IV 1 EA IV ONE; -LIDOCAINE 1% MDV 20ML VIAL SQ PRN; -LR 1,000 ML IV ONE; +OXYB5TAB10 PO; +PYRI1TAB5 PO
== END ==
LOC: M PAIN 13:45
PROVIDERS: ATTEND Anesthesiology
DX: M54.50 Low back pain, unspecified (principal); F32.A Depression, unspecified; K21.00 Gastro-esophageal reflux disease with esophagitis, without bleeding; I10 Essential (primary) hypertension; Z85.46 Personal history of malignant neoplasm of prostate; Z87.442 Personal history of urinary calculi; Z79.891 Long term (current) use of opiate analgesic; Z87.891 Personal history of nicotine dependence; Z79.82 Long term (current) use of aspirin; Z79.84 Long term (current) use of oral hypoglycemic drugs; Z79.1 Long term (current) use of non-steroidal anti-inflammatories (NSAID); Z79.899 Other long term (current) drug therapy

== ENCOUNTER → 2022-03-28 | Outpatient (CLI) | payer OTHER ==
[~2022-03-28] MED LIST changes: -D31000TA2 PO; +VITA100093 PO
== END ==
LOC: M PAIN 11:30
PROVIDERS: ATTEND Nurse Practitioner Family
DX: M51.16 Intervertebral disc disorders with radiculopathy, lumbar region (principal); F32.A Depression, unspecified; K21.00 Gastro-esophageal reflux disease with esophagitis, without bleeding; I10 Essential (primary) hypertension; Z85.46 Personal history of malignant neoplasm of prostate; Z92.3 Personal history of irradiation; N40.1 Benign prostatic hyperplasia with lower urinary tract symptoms; R35.1 Nocturia; R39.12 Poor urinary stream; Z87.442 Personal history of urinary calculi; Z98.890 Other specified postprocedural states; Z79.891 Long term (current) use of opiate analgesic; Z79.82 Long term (current) use of aspirin; Z79.84 Long term (current) use of oral hypoglycemic drugs; Z79.1 Long term (current) use of non-steroidal anti-inflammatories (NSAID); Z87.891 Personal history of nicotine dependence

== ENCOUNTER → 2022-06-30 | Outpatient (CLI) | payer OTHER ==
[~2022-06-30] MED LIST changes: +ALEN70TA87 PO; -FOSA70TA PO
== END ==
LOC: M PAIN 11:00
PROVIDERS: ATTEND Nurse Practitioner Family
DX: M51.16 Intervertebral disc disorders with radiculopathy, lumbar region (principal); F32.A Depression, unspecified; M54.50 Low back pain, unspecified; K21.00 Gastro-esophageal reflux disease with esophagitis, without bleeding; N40.1 Benign prostatic hyperplasia with lower urinary tract symptoms; R39.12 Poor urinary stream; N18.9 Chronic kidney disease, unspecified; I12.9 Hypertensive chronic kidney disease with stage 1 through stage 4 chronic kidney disease, or unspecified chronic kidney disease; R35.1 Nocturia; Z79.891 Long term (current) use of opiate analgesic; Z85.46 Personal history of malignant neoplasm of prostate; Z87.442 Personal history of urinary calculi; Z87.891 Personal history of nicotine dependence; Z79.82 Long term (current) use of aspirin; Z79.84 Long term (current) use of oral hypoglycemic drugs; Z79.1 Long term (current) use of non-steroidal anti-inflammatories (NSAID); Z79.899 Other long term (current) drug therapy

== ENCOUNTER → 2024-03-23 | Outpatient (CLI) | payer OTHER ==
[~2024-03-23] MED LIST changes: -ALBU8.5H; +ALBU8.5H INH; +B-12100010 PO; +BAYE81TA10 PO; +FLUO-365 PO; -FLUO20CA22 PO; +LISI20TA35 PO; +OMEG10002 PO; -OXYB5TAB10; -OXYB5TAB10 PO; +OXYB5TAB14; +OXYB5TAB14 PO; -ROPI0.2534 PO; +ROPI25TA PO; +ROPI5TAB19 DILUENT; +SOLI10TA PO
== END ==
LOC: M WHC 06:43
PROVIDERS: ATTEND Urology
DX: N17.9 Acute kidney failure, unspecified (principal); N26.1 Atrophy of kidney (terminal); N28.89 Other specified disorders of kidney and ureter

== ENCOUNTER 2024-03-24 05:58 | Day surgery (SDC) | payer OTHER ==
[~2024-03-24] VITALS: Ht 175.3 cm; Wt 86.5 kg
[2024-03-24] MEDS ORDERED: propofoL 200 MG/20 ML VIAL As Ordered ONE (06:39)
[2024-03-24] MEDS ORDERED: LIDOCAINE 2% 100MG/5ML SDV (FOR ANES.) As Ordered ONE (06:39)
[2024-03-24] MEDS ORDERED: ONDANSETRON 4MG 2ML VIAL As Ordered ONE (06:39)
[2024-03-24] MEDS ORDERED: fentaNYL 100 MCG/2 ML INJECTION As Ordered ONE (06:39)
[2024-03-24] MEDS ORDERED: ACETAMINOPHEN 1000MG 100ML IV BAG As Ordered ONE (06:39)
[2024-03-24] MEDS ORDERED: LR 1,000 ML IV SCH ×2 (06:55→09:05)
[2024-03-24] MEDS ORDERED: KETAMINE HCL 200MG/20ML VIAL As Ordered ONE (07:19)
[2024-03-24] MEDS ORDERED: ceFAZolin 2 GM/D5W 50 ML IV BAG As Ordered ONE (07:22)
[2024-03-24] MEDS: ceFAZolin SOD 2 GM in IV 1 EA IV ONE (07:26)
[2024-03-24] MEDS: LIDOCAINE 2% 5ML JELLY UROJET As Ordered ONE (07:30)
[2024-03-24] MEDS ORDERED: fentaNYL 100 MCG/2 ML INJECTION IV PRN (09:05)
[2024-03-24] MEDS ORDERED: ONDANSETRON 4MG 2ML VIAL IV PRN (09:05)
[2024-03-24] MEDS ORDERED: HYDROMORPHONE HCL 0.5 MG/ 0.5 ML SYRINGE IV PRN (09:05)
[2024-03-24] MEDS: oxyCODONE 5MG TAB PO PRN (09:39)
[2024-03-24 11:30] VITALS: BP 167/74; TEMP 97.7; O2SAT 95
== END 2024-03-24 11:49 | disposition home or self-care (01) ==
LOC: M SDC 05:58
PROVIDERS: ATTEND Urology
DX: N32.0 Bladder-neck obstruction (principal); I10 Essential (primary) hypertension; E11.9 Type 2 diabetes mellitus without complications; J44.9 Chronic obstructive pulmonary disease, unspecified; I71.20 Thoracic aortic aneurysm, without rupture, unspecified; E78.00 Pure hypercholesterolemia, unspecified; Z85.46 Personal history of malignant neoplasm of prostate; Z92.3 Personal history of irradiation; Z79.899 Other long term (current) drug therapy; Z79.82 Long term (current) use of aspirin; Z79.84 Long term (current) use of oral hypoglycemic drugs; Z79.1 Long term (current) use of non-steroidal anti-inflammatories (NSAID); K21.9 Gastro-esophageal reflux disease without esophagitis; Z90.49 Acquired absence of other specified parts of digestive tract; Z87.891 Personal history of nicotine dependence
CPT/HCPCS: 52276; 87086; C1769; J0690

== ENCOUNTER → 2024-10-03 | Outpatient (REF) | payer OTHER ==
[2024-10-03 14:17] LABS: CALCIUM LEVEL 8.2 MG/DL (8.3-10.6); CREATININE FOR GFR 2.16 MG/DL (0.70-1.30); GLOMERULAR FILTRATION RATE 31.2 (>35); POTASSIUM SERUM 5.4 MMOL/L (3.5-5.1)
== END ==
LOC: M SHH 12:38
PROVIDERS: ATTEND Student in an Organized Health Care Education/Training Program
DX: E87.5 Hyperkalemia (principal)